=== PATIENT | female | born 1955 | race Caucasian/White ===

== ENCOUNTER 2016-12-19 07:41 | Outpatient (CLI) | payer OTHER | END 2016-12-19 07:42 | disposition home or self-care (01) | DX: R53.83 Other fatigue (principal) ==

== ENCOUNTER 2017-01-09 07:36 | Outpatient (CLI) | payer OTHER | END 2017-01-09 07:37 | disposition home or self-care (01) | DX: R53.83 Other fatigue (principal) ==

== ENCOUNTER 2018-05-06 08:19 | Outpatient (CLI) | payer OTHER ==
[2018-05-06 13:09] LABS: BASOPHILS % (AUTO) 0.6 %; EOSINOPHILS # (AUTO) 0.1 10^3/uL (0.0-0.7); EOSINOPHILS % (AUTO) 1.8 %; HGB - HEMOGLOBIN 13.1 g/dL (12.0-16.0); LYMPHOCYTES # (AUTO) 1.1 10^3/uL (1.5-3.5); LYMPHOCYTES % (AUTO) 23.3 %; MEAN CORPUSCULAR HEMOGLOBIN 31.1 pg (27.0-31.0); MEAN CORPUSCULAR HGB CONC 33.6 g/dL (32.0-36.0); MEAN CORPUSCULAR VOLUME 92.6 fL (81.0-99.0); MEAN PLATELET VOLUME 10.3 fL (7.9-10.8); MONOCYTES # (AUTO) 0.4 10^3/uL (0.0-1.0); MONOCYTES % (AUTO) 7.7 %; NEUTROPHILS # (AUTO) 3.2 10^3/uL (1.5-6.6); NEUTROPHILS % (AUTO) 66.6 %; PLT - PLATELET COUNT 187 10^3/uL (130-450); RED BLOOD COUNT 4.21 10^6/uL (4.20-5.40); RED CELL DISTRIBUTION WIDTH 13.8 % (12.0-15.0); WHITE BLOOD COUNT 4.8 x10^3/uL (4.8-10.8)
[2018-05-06 13:35] LABS: ALBUMIN 3.9 g/dL (3.2-5.5); ALBUMIN/GLOBULIN RATIO 1.8 (1.0-2.2); ALKALINE PHOSPHATASE 60 IU/L (42-121); ALT ALANINE AMINOTRANSFERASE 48 IU/L (10-60); AST ASPARTATE AMINOTRANSFERASE 36 IU/L (10-42); BILIRUBIN,TOTAL 1.1 mg/dL (0.2-1.0); BUN - BLOOD UREA NITROGEN 16 mg/dL (6-20); CARBON DIOXIDE - CO2 30 mmol/L (21-32); CHLORIDE 104 mmol/L (101-111); CHOL/HDL RATIO 2.6 (<4.4); CHOLESTEROL 201 mg/dL; CREATININE 0.6 mg/dL (0.4-1.0); GFR - MDRD 101 (>89); GLUCOSE 83 mg/dL (70-100); HDL CHOLESTEROL 78 mg/dL; LDL CHOLESTEROL,CALCULATED 114 mg/dL; LDL/HDL RATIO 1.5 (<4.4); SODIUM 139 mmol/L (135-145); TOTAL PROTEIN 6.1 g/dL (6.7-8.2); VLDL CHOLESTEROL 9 mg/dL
[2018-05-06 13:40] LABS: THYROID STIMULATING HORMONE 3.48 uIU/mL (0.34-5.60)
[2018-05-06 13:45] LABS: FERRITIN 35.6 ng/mL (11.0-306.8); HB2 TOTAL 13.4 g/dL; HEMOGLOBIN A1C 0.48 g/dL; HEMOGLOBIN A1C % 5.4 % (4.6-6.2)
== END 2018-05-06 08:20 | disposition home or self-care (01) ==
LOC: LAB.F 08:19
PROVIDERS: ATTEND Naturopath
DX: R53.83 Other fatigue (principal)
CPT/HCPCS: 36415; 80053; 80061; 82728; 83036; 83721; 84443; 85025

== ENCOUNTER 2020-03-04 14:03 | Outpatient (CLI) | payer MEDICARE, BC ==
[2020-03-04 14:47] LABS: ALBUMIN 4.3 g/dL (3.2-5.5); ALBUMIN/GLOBULIN RATIO 2.3 (1.0-2.2); CALCIUM 9.3 mg/dL (8.5-10.3); CREATININE 0.8 mg/dL (0.4-1.0); TOTAL PROTEIN 6.2 g/dL (6.7-8.2)
== END 2020-03-04 14:04 | disposition home or self-care (01) ==
LOC: LAB 14:03
PROVIDERS: ATTEND Nurse Practitioner Family
DX: D84.9 Immunodeficiency, unspecified (principal); R94.5 Abnormal results of liver function studies; E87.8 Other disorders of electrolyte and fluid balance, not elsewhere classified; D80.2 Selective deficiency of immunoglobulin A [IgA]
CPT/HCPCS: 36415; 80053; 82784

== ENCOUNTER 2020-09-21 17:16 | Outpatient (CLI) | payer MEDICARE, BC | END 2020-09-21 17:17 | disposition home or self-care (01) | LOC: COV 17:16 | PROVIDERS: ATTEND Family Medicine | DX: R06.02 Shortness of breath (principal); M79.10 Myalgia, unspecified site; R53.83 Other fatigue; R09.81 Nasal congestion; Z20.828 Contact with and (suspected) exposure to other viral communicable diseases ==

== ENCOUNTER 2020-12-20 08:26 | Outpatient (CLI) | payer MEDICARE, BC | END 2020-12-20 08:27 | disposition home or self-care (01) | LOC: LAB 08:26 | PROVIDERS: ATTEND Family Medicine | DX: I10 Essential (primary) hypertension (principal); F41.9 Anxiety disorder, unspecified; E63.9 Nutritional deficiency, unspecified; G47.9 Sleep disorder, unspecified; E61.9 Deficiency of nutrient element, unspecified; R53.83 Other fatigue; E78.5 Hyperlipidemia, unspecified; E78.00 Pure hypercholesterolemia, unspecified | CPT/HCPCS: 36415 ==

== ENCOUNTER 2021-06-02 08:12 | Outpatient (CLI) | payer MEDICARE, BC | END 2021-06-02 08:13 | disposition home or self-care (01) | LOC: LAB.S 08:12 | PROVIDERS: ATTEND Internal Medicine Cardiovascular Disease | DX: T50.905A Adverse effect of unspecified drugs, medicaments and biological substances, initial encounter (principal); I10 Essential (primary) hypertension | CPT/HCPCS: 36415; 82088; 84244 ==

== ENCOUNTER 2021-06-08 16:19 | Outpatient (CLI) | payer MEDICARE, BC | END 2021-06-08 16:20 | disposition home or self-care (01) | LOC: COV 16:19 | PROVIDERS: ATTEND Family Medicine | DX: R53.83 Other fatigue (principal); R07.0 Pain in throat; J34.89 Other specified disorders of nose and nasal sinuses; Z20.822 Contact with and (suspected) exposure to COVID-19 ==

== ENCOUNTER 2021-09-16 08:00 | Outpatient (CLI) | payer MEDICARE, BC ==
--- NOTE | 2021-09-16 10:20 | XRAY Report ---
PROCEDURE: Abdomen Acute INDICATIONS: ABDOMINAL PAIN TECHNIQUE: One view chest and two views of the abdomen were acquired. COMPARISON: None FINDINGS: Surgical changes and devices: None. Chest: Lungs are clear. Heart size is normal. No pleural effusions. No pneumoperitoneum. Abdomen: Bowel gas pattern is normal. There is a moderate amount of stool seen within the colon. No suspicious calcifications. Visualized solid organ contours appear normal. Bones: No suspicious bony lesions. IMPRESSION: There is a moderate amount of stool seen within the colon. Please correlate with clinica l constipation. Clear lungs. Reviewed by: Efraín Jean MD on 09/16/2021 9:19 AM [facility] Approved by: Efraín Jean MD on 09/16/2021 9:19 AM [facility] Station ID: [id number]
== END 2021-09-16 23:59 | disposition home or self-care (01) ==
LOC: DI.S 08:00
PROVIDERS: ATTEND Emergency Medicine
DX: R10.84 Generalized abdominal pain (principal)

== ENCOUNTER 2023-01-18 08:24 | Outpatient (CLI) | payer MEDICARE ==
--- NOTE | 2023-01-18 16:56 | XRAY Report ---
PROCEDURE: Knee 3 View LT INDICATIONS: KNEE PAIN,LEFT TECHNIQUE: 3 views of the left knee(s) were acquired. COMPARISON: None. FINDINGS: Bones: No fractures or dislocations. No patella subluxation. Mild to moderate tricompartmental oste oarthritis is seen most notably in medial femoral tibial compartment. No suspicious bony lesions. Soft tissues: No effusion. No suspicious soft tissue calcifications or masses. IMPRESSION: Mild to moderate tricompartmental osteoarthritis most notably in medial femoral tibial compartment. N o acute fracture or dislocation. No significant joint effusion. Reviewed by: Tee Potter MD on 01/18/2023 4:55 PM PDT Approved by: Tee Potter MD on 01/18/2023 4:55 PM PDT Station ID: [id number]
== END 2023-01-18 08:25 | disposition home or self-care (01) ==
LOC: DI.S 08:24
PROVIDERS: ATTEND Physician Assistant
DX: M17.12 Unilateral primary osteoarthritis, left knee (principal)

== ENCOUNTER 2023-10-10 16:36 | Outpatient (CLI) | payer MEDICARE ==
--- NOTE | 2023-10-11 12:23 | XRAY Report ---
PROCEDURE: Shoulder 3 View LT INDICATIONS: XRAY TECHNIQUE: 3 views of the shoulder were acquired. COMPARISON: None. FINDINGS: Bones: No fractures or dislocations. Mild to moderate acromioclavicular joint osteoarthritic change s are seen. No suspicious bony lesions. Visualized ribs appear intact. Soft tissues: No suspicious soft tissue calcifications. The visualized lungs are within normal limi ts. IMPRESSION: Mild to moderate acromioclavicular joint osseous arthritis. No shoulder fracture or dislocation. No g ross soft tissue abnormalities. Reviewed by: Tee Potter MD on 10/11/2023 12:22 PM PST Approved by: Tee Potter MD on 10/11/2023 12:22 PM PST Station ID: [id number]
--- NOTE | 2023-10-11 12:25 | XRAY Report ---
PROCEDURE: Cervical Spine Comp w/Flex/Ext INDICATIONS: XRAY TECHNIQUE: 7 views of the cervical spine were acquired. COMPARISON: None. FINDINGS: Bones: No fractures or dislocations to the C7-T1 level. Straightening of normal cervical lordosis is seen. Degenerative endplate changes and bilateral facet hypertrophic changes are noted throughout ce rvical spine more notably at C5-6 and C6-7 levels. No suspicious bony lesions. There is decreased ra nge of motion between flexion and extension, with preserved cervical spine alignment. Oblique views shows mild left-sided bony foraminal stenosis at C5-6 level. Soft tissues: Prevertebral soft tissues are normal in thickness. IMPRESSION: 1. Mild degenerative disc disease throughout cervical spine. No acute fracture or dislocation. 2. Slightly decreased range of motion on lateral flexion and extension views with preserved cervical spine alignment. 3. Mild left-sided bony foraminal stenosis at C5-6 level is seen on oblique views. Reviewed by: Tee Potter MD on 10/11/2023 12:23 PM PST Approved by: Tee Potter MD on 10/11/2023 12:23 PM PST Station ID: [id number]
== END 2023-10-10 16:37 | disposition home or self-care (01) ==
LOC: DI.S 16:36
PROVIDERS: ATTEND Internal Medicine
DX: M50.322 Other cervical disc degeneration at C5-C6 level (principal); M48.02 Spinal stenosis, cervical region; M19.012 Primary osteoarthritis, left shoulder

== ENCOUNTER 2023-12-27 12:30 | Outpatient (CLI) | payer MEDICARE ==
--- NOTE | 2023-12-27 16:12 | Ultrasound Report ---
PROCEDURE: Duplex Ext Veins Left INDICATIONS: PHLEBITIS AND THROMBOPHLEBITIS TECHNIQUE: Real-time imaging, as well as color and pulse Doppler interrogation, were performed of the lower extr emity deep veins from the inguinal ligament to the popliteal fossa. Attempted visualization of the ca lf veins was performed. COMPARISON: None. FINDINGS: The deep veins are normally compressible, and free of intraluminal thrombus. Color and pu lse Doppler demonstrate normal phasic intraluminal flow. There is normal augmentation response to di stal compression maneuver. IMPRESSION: No deep venous thrombosis of the visualized left lower extremity. Reviewed by: Bere Melchor MD on 12/27/2023 4:11 PM PST Approved by: Bere Melchor MD on 12/27/2023 4:11 PM PST Station ID: [id number]
== END 2023-12-27 12:31 | disposition home or self-care (01) ==
LOC: DI 12:30
PROVIDERS: ATTEND Internal Medicine
DX: I80.02 Phlebitis and thrombophlebitis of superficial vessels of left lower extremity (principal)

== ENCOUNTER 2024-02-07 21:57 | Outpatient (CLI) | payer MEDICARE | END 2024-02-07 21:58 | disposition critical access hospital (66) | LOC: EMS 21:57 | DX: M25.562 Pain in left knee (principal); W18.49XA Other slipping, tripping and stumbling without falling, initial encounter; X50.9XXA Other and unspecified overexertion or strenuous movements or postures, initial encounter; Y92.008 Other place in unspecified non-institutional (private) residence as the place of occurrence of the external cause | CPT/HCPCS: A0425; A0429 ==

== ENCOUNTER 2024-02-07 22:33 | Emergency (ER) | payer MEDICARE ==
[2024-02-07 22:54] VITALS: BP 192/90; O2SAT 99
--- NOTE | 2024-02-07 23:10 | ED Physician Documentation ---
History of Present Illness - Stated complaint Stated Complaint: L KNEE PX - Chief complaint Chief Complaint: Trauma Ext - History obtained from History obtained from: Patient, EMS - Additonal information Additional information: 69yF p/w L knee injury tonight after stumbling on last step going downstairs, twisting the knee and then lowering down to the floor. denies other injury. patient does have prior history of patellar misalignment on that side PD PAST MEDICAL HISTORY - Past Medical History Past Medical History: Yes Musculoskeletal: Osteopenia Other Past Medical History: Mast Cell Activation Syndrome - Past Surgical History Past Surgical History: Yes /[employer]: Endometrial ablation, Tubal ligation, Other HEENT: Tonsil/Adenoidectomy, Other - Present Medications Home Medications: Ambulatory Orders Medication Instructions Recorded Confirmed No Known Home Medications 02/07/24 02/07/24 - Allergies Allergies/Adverse Reactions: Allergies Allergy/AdvReac Type Severity Reaction Status Date / Time amlodipine Allergy Unknown Verified 02/07/24 22:51 amoxicillin Allergy Unknown Verified 02/07/24 22:50 Androgenic Anabolic Steroid Allergy Unknown Verified 02/07/24 22:49 Anesthetics - Amide Type - Allergy Unknown Verified 02/07/24 22:50 Select A clindamycin Allergy Unknown Verified 02/07/24 22:51 codeine Allergy Unknown Verified 02/07/24 22:48 epinephrine Allergy Unknown Verified 02/07/24 22:49 gluten Allergy Unknown Verified 02/07/24 22:53 hydralazine Allergy Unknown Verified 02/07/24 22:52 Iodinated Contrast Media Allergy Unknown Verified 02/07/24 22:50 metoprolol Allergy Unknown Verified 02/07/24 22:51 NSAIDS (Non-Steroidal Allergy Unknown Verified 02/07/24 22:48 Anti-Inflamma Sulfa (Sulfonamide Allergy Unknown Verified 02/07/24 22:49 Antibiotics) arginine Allergy Unknown Uncoded 02/07/24 22:53 coenzyme- Q-10 Allergy Unknown Uncoded 02/07/24 22:54 - Social History Does the pt smoke?: No Smoking Status: Never smoker Does the pt drink ETOH?: No Does the pt have substance abuse?: No - Immunizations Immunizations are current?: Yes - POLST Patient has POLST: No PD ED PE NORMAL - Vitals Vital signs reviewed: Yes - General General: Alert and oriented X 3, No acute distress, Well developed/nourished - HEENT HEENT: Atraumatic, PERRL, EOMI - Derm Derm: Normal color, Warm and dry - Extremities Extremities: Other (L knee tender with ROM. moderate suprapatellar edema. +anterior drawer sign. 2+ dp pulse LLE. csm intact) Results - Vitals Vitals: Vital Signs - 24 hr 02/07/24 22:32 Temperature 37.2 C Heart Rate 86 Respiratory 16 Rate Blood Pressure 192/90 H O2 Saturation 99 Oxygen O2 Source Room air PD Medical Decision Making - ED course ED course: 69yF p/w likely ligament injury s/p twisting knee on the stairs. does not appear to have other injuries. xrays without acute fracture or dislocation on wet read. knee immobilizer placed. patient has crutches at home. return precautions given. plan to f/u with ortho. Departure - Departure Disposition: 01 Home, Self Care Clinical Impression: Knee instability, Knee swelling Condition: Stable Instructions: ED RICE Follow-Up: Levi Romero MD [Provider Admit Priv/Credential] - Comments: You were seen in the emergency department for knee injury. You may have a partial ligament tear. Please follow up with orthopedics in 1 week for re-exam. Use crutches and knee immobilizer until that time. There is limited clinical data for efficacy of arnica in treatment of musculoskeletal injury. If it is effective for you then it can be used for pain relief. If you are experiencing continued pain despite this, icing, and elevating, then we are here 24 hours for re-check. Please return to the emergency department if you have any new or worsening symptoms or other concerns. Forms: PCP List
--- NOTE | 2024-02-07 23:36 | XRAY Report ---
PROCEDURE: Knee 3V LT INDICATIONS: Twisted L knee, swollen c/o pain TECHNIQUE: 3 views of the knee(s) were acquired. COMPARISON: 01/18/2023 FINDINGS: Bones: No fractures or dislocations. No suspicious bony lesions. Soft tissues: Small knee joint effusion. No suspicious soft tissue calcifications or masses. IMPRESSION: No acute bony abnormality. If pain persists with conservative management, consider repeat x-ray in 10 -14 days or cross-sectional imaging. Reviewed by: Jean Pierre Chanel MD on 02/07/2024 11:34 PM PDT Approved by: Jean Pierre Chanel MD on 02/07/2024 11:34 PM PDT Station ID: [id number]
== END 2024-02-08 00:09 | disposition home or self-care (01) ==
LOC: EDUNIT# → ED 22:33
DX: M79.89 Other specified soft tissue disorders (principal); M23.52 Chronic instability of knee, left knee; X50.1XXA Overexertion from prolonged static or awkward postures, initial encounter
CPT/HCPCS: 99283; 99284

== ENCOUNTER 2024-02-12 19:43 | Outpatient (CLI) | payer MEDICARE ==
--- NOTE | 2024-02-13 08:10 | Ultrasound Report ---
PROCEDURE: Duplex Ext Veins Left INDICATIONS: L CALF PAIN TECHNIQUE: Real-time imaging, as well as color and pulse Doppler interrogation, were performed of the lower extr emity deep veins from the inguinal ligament to the popliteal fossa. Attempted visualization of the ca lf veins was performed. COMPARISON: None. FINDINGS: The deep veins are normally compressible, and free of intraluminal thrombus. Color and pu lse Doppler demonstrate normal phasic intraluminal flow. There is normal augmentation response to di stal compression maneuver. Left popliteal fluid collection measuring 3.1 x 2.8 x 1.1 cm compatible with a Cloud's cyst. Anterior knee free fluid measuring 4.4 x 0.8 x 3.6 cm. IMPRESSION: 1.No deep venous thrombosis of the visualized lower extremity. 2.Cloud's cyst. 3.Anterior knee fluid collection measuring 4.4 x 0.8 x 3.6 cm which may represent a joint effusion ve rsus sequela of trauma. Correlate with physical exam. Reviewed by: Bere Melchor MD on 02/13/2024 8:09 AM PDT Approved by: Bere Melchor MD on 02/13/2024 8:09 AM PDT Station ID: [id number]
== END 2024-02-12 19:44 | disposition home or self-care (01) ==
LOC: DI 19:43
PROVIDERS: ATTEND Registered Nurse
DX: M71.22 Synovial cyst of popliteal space [Baker], left knee (principal)

== ENCOUNTER 2024-02-13 12:01 | Outpatient (CLI) | payer MEDICARE ==
[2024-02-13 14:13] LABS: INR 1.1 (0.8-1.2); PT - PROTHROMBIN TIME 12.3 secs (9.9-12.6)
[2024-02-13 14:15] LABS: BASOPHILS % (AUTO) 0.5 %; EOSINOPHILS # (AUTO) 0.1 10^3/uL (0.0-0.7); EOSINOPHILS % (AUTO) 1.5 %; HGB - HEMOGLOBIN 12.5 g/dL (12.0-16.0); LYMPHOCYTES # (AUTO) 1.2 10^3/uL (1.5-3.5); LYMPHOCYTES % (AUTO) 16.2 %; MEAN CORPUSCULAR HEMOGLOBIN 30.6 pg (27.0-31.0); MEAN CORPUSCULAR HGB CONC 32.1 g/dL (32.0-36.0); MEAN CORPUSCULAR VOLUME 95.4 fL (81.0-99.0); MEAN PLATELET VOLUME 11.7 fL (7.9-10.8); MONOCYTES # (AUTO) 0.6 10^3/uL (0.0-1.0); MONOCYTES % (AUTO) 7.7 %; NEUTROPHILS # (AUTO) 5.5 10^3/uL (1.5-6.6); NEUTROPHILS % (AUTO) 73.7 %; PLT - PLATELET COUNT 240 10^3/uL (130-450); RED BLOOD COUNT 4.09 10^6/uL (4.20-5.40); RED CELL DISTRIBUTION WIDTH 13.4 % (12.0-15.0); WHITE BLOOD COUNT 7.4 x10^3/uL (4.8-10.8)
[2024-02-13 14:20] LABS: PARTIAL THROMBOPLASTIN TIME 41.8 secs (24.9-33.3)
== END 2024-02-13 12:02 | disposition home or self-care (01) ==
LOC: LAB.S 12:01
PROVIDERS: ATTEND Registered Nurse
DX: R22.42 Localized swelling, mass and lump, left lower limb (principal); M79.662 Pain in left lower leg; I80.02 Phlebitis and thrombophlebitis of superficial vessels of left lower extremity
CPT/HCPCS: 36415; 85025; 85379; 85610; 85730

== ENCOUNTER 2024-02-17 10:15 | Outpatient (CLI) | payer MEDICARE ==
[2024-02-17 15:39] LABS: PARTIAL THROMBOPLASTIN TIME 39.7 secs (24.9-33.3)
[2024-02-19 18:08] LABS: CARDIOLIPIN IGG <9 GPL U/mL (0-14); CARDIOLIPIN IGM <9 MPL U/mL (0-12)
== END 2024-02-17 10:16 | disposition home or self-care (01) ==
LOC: LAB.S 10:15
PROVIDERS: ATTEND Internal Medicine
DX: M25.562 Pain in left knee (principal); D68.9 Coagulation defect, unspecified; D69.9 Hemorrhagic condition, unspecified; I80.02 Phlebitis and thrombophlebitis of superficial vessels of left lower extremity; D89.42 Idiopathic mast cell activation syndrome; S80.02XD Contusion of left knee, subsequent encounter
CPT/HCPCS: 36415; 81599; 85240; 85245; 85246; 85300; 85303; 85307; 85379; 85598; 85610; 85613; 85730; 85732; 86147; 86225

== ENCOUNTER 2024-02-24 12:18 | Outpatient (CLI) | payer MEDICARE ==
[2024-02-24 14:43] LABS: BASOPHILS % (AUTO) 0.5 %; EOSINOPHILS # (AUTO) 0.1 10^3/uL (0.0-0.7); EOSINOPHILS % (AUTO) 0.7 %; HCT - HEMATOCRIT 39.3 % (37.0-47.0); HGB - HEMOGLOBIN 12.5 g/dL (12.0-16.0); LYMPHOCYTES # (AUTO) 1.1 10^3/uL (1.5-3.5); LYMPHOCYTES % (AUTO) 13.1 %; MEAN CORPUSCULAR HEMOGLOBIN 30.5 pg (27.0-31.0); MEAN CORPUSCULAR HGB CONC 31.8 g/dL (32.0-36.0); MEAN CORPUSCULAR VOLUME 95.9 fL (81.0-99.0); MEAN PLATELET VOLUME 11.6 fL (7.9-10.8); MONOCYTES # (AUTO) 0.5 10^3/uL (0.0-1.0); MONOCYTES % (AUTO) 6.5 %; NEUTROPHILS # (AUTO) 6.6 10^3/uL (1.5-6.6); NEUTROPHILS % (AUTO) 78.8 %; PLT - PLATELET COUNT 305 10^3/uL (130-450); RED CELL DISTRIBUTION WIDTH 13.6 % (12.0-15.0); WHITE BLOOD COUNT 8.3 x10^3/uL (4.8-10.8)
[2024-02-24 15:24] LABS: PARTIAL THROMBOPLASTIN TIME 37.7 secs (24.9-33.3)
[2024-02-24 16:57] LABS: INR 1.1 (0.8-1.2); PT - PROTHROMBIN TIME 12.2 secs (9.9-12.6)
== END 2024-02-24 12:19 | disposition home or self-care (01) ==
LOC: LAB.S 12:18
PROVIDERS: ATTEND Nurse Practitioner
DX: R79.9 Abnormal finding of blood chemistry, unspecified (principal)
CPT/HCPCS: 36415; 85025; 85379; 85610; 85730

== ENCOUNTER 2024-02-24 15:56 | Outpatient (CLI) | payer MEDICARE ==
--- NOTE | 2024-02-25 09:41 | MRI Report ---
PROCEDURE: Foot LT WO INDICATIONS: L KNEE PAIN,PHLEBITIS AND THOMBOPHLB TECHNIQUE: Noncontrast sagittal T1 spin echo and T2 fast spin echo with fat saturation, long-axis T1 spin echo a nd T2 fast spin echo with fat saturation, short-axis proton density fast spin echo and T2 fast spin e cho with fat saturation through the forefoot. COMPARISON: Left lower extremity venous Doppler study dated 02/12/2024 FINDINGS: Image quality: Excellent. Bones and joints: No bone marrow contusions or metatarsal stress fractures. Mild midfoot and forefoo t joint osteoarthritic changes are seen with joint space narrowing and subchondral sclerosis more not ably in first MTP joint and first interphalangeal joint. No suspicious bony lesions. No bony erosive changes or abnormal periosteal reaction. Soft tissues: There is significant soft tissue edema and swelling over dorsum of midfoot and forefoo t. No discrete drainable fluid collection. The visualized plantar foot muscles demonstrate normal sig nal and bulk. Visualized flexor and extensor tendons appear intact, without tenosynovitis. No soft tissue ganglion cysts or bursal fluid collections. Sagittal images demonstrate no evidence for plant ar plate tears. IMPRESSION: 1. Dorsal midfoot and forefoot soft tissue swelling and edema suggestive of mild cellulitis. No discr ete drainable abscess collection. 2. No marrow edema. No fracture or dislocation. No MR evidence of osteomyelitis. Midfoot and forefoot joint osteoarthritis most notably in great toe as above. No metatarsal stress fractures. 3. No signal abnormalities are seen in included portion of plantar foot muscles. Extensor and flexor tendons are intact. Reviewed by: Tee Potter MD on 02/25/2024 9:39 AM PDT Approved by: Tee Potter MD on 02/25/2024 9:39 AM PDT Station ID: [id number]
--- NOTE | 2024-02-25 09:47 | MRI Report ---
Knee LT WO CLINICAL INFORMATION: 69 years of age, Female, L KNEE PAIN,PHLEBITIS AND THOMBOPHLB. COMPARISON: Radiograph on 02/07/2024 Technique: Multisequence, multiplanar MRI of the left knee was performed without intravenous contrast . FINDINGS: Menisci: The medial and lateral menisci, including the roots, are intact. Cruciate ligaments: The anterior and posterior cruciate ligaments are intact. MCL/LCL: The MCL is unremarkable. The biceps femoris tendon is unremarkable. The fibular collateral ligament is unremarkable. The iliotibial band is intact. The popliteus muscle and tendon also appear intact. Extensor mechanism: Small amount of fluid within the quadricep tendon, suggestive of low-grade tear. The patella tendon is unremarkable. Patellofemoral joint: Alignment within the patellofemoral joint is normal. The patellofemoral ligame nts are intact. Cartilage and bone marrow signal within the patella and femoral trochlea are normal. Cartilage and bone: In the medial compartment, the cartilage is well-maintained. There is a small sub chondral insufficiency fracture in the weightbearing portion of the femoral condyle with minimal surr ounding marrow edema. There is a nondisplaced fracture of both the medial and lateral tibial plateau with marked surrounding marrow edema. In addition, there is a nondisplaced fracture of the fibular he ad with marked marrow edema. In the lateral compartment, the cartilage is grossly well maintained as well. Miscellaneous: Moderate knee effusion. No popliteal cyst. No intra-articular bodies are identified. Diffuse, mild muscle edema about the knee. Diffuse subcutaneous edema of the knee. No vascular anomal y. IMPRESSION: 1.Small subchondral insufficiency fracture in the medial femoral condyle. 2.Nondisplaced fracture of the medial and lateral tibial plateau, and of the fibular head, acute. 3.Moderate knee effusion. Reviewed by: Kerry Ramirez MD on 02/25/2024 9:46 AM PDT Approved by: Kerry Ramirez MD on 02/25/2024 9:46 AM PDT Station ID: [id number]
== END 2024-02-24 15:57 | disposition home or self-care (01) ==
LOC: DI 15:56
PROVIDERS: ATTEND Registered Nurse
DX: S82.145A Nondisplaced bicondylar fracture of left tibia, initial encounter for closed fracture (principal); S82.832A Other fracture of upper and lower end of left fibula, initial encounter for closed fracture; M25.462 Effusion, left knee; M19.072 Primary osteoarthritis, left ankle and foot; R79.9 Abnormal finding of blood chemistry, unspecified
CPT/HCPCS: 36415; 85025; 85379; 85610; 85730

== ENCOUNTER 2024-03-27 14:00 | Outpatient (CLI) | payer MEDICARE ==
--- NOTE | 2024-03-27 16:05 | MRI Report ---
Ankle LT WO CLINICAL HISTORY: 69 years of age, Female, L LEG SWELLING. COMPARISON: None Technique: Multisequence, multiplanar MRI of the left ankle was performed without contrast. IV CONTRAST: Not given FINDINGS: Tendons: The flexors, and extensor tendons are unremarkable. The peroneal tendons and the distal Achi lles tendon are unremarkable. Ligaments: The anterior and posterior tibiofibular ligaments are intact. The anterior and posterior t alofibular ligaments are intact. The calcaneofibular ligament is unremarkable. The superficial and de ep components of the deltoid ligament are intact. Sinus Tarsi: Normal signal without evidence of inflammatory change or fibrosis. Plantar fascia: Normal signal and morphology without evidence of inflammation or tear. Muscles: Visualized intrinsic foot musculature demonstrates normal signal and bulk. Bones and cartilage: Patchy marrow edema within the ankle, nonspecific and may be secondary to altere d weightbearing. No osteochondral lesion of the talus dome. Miscellaneous: Tarsal tunnel appears normal. No significant effusion. No ganglion cyst. Diffuse sub cutaneous edema of the ankle, extending to the dorsal foot. IMPRESSION: 1.Patchy marrow edema within the ankle, nonspecific and may be secondary to altered weightbearing. 2.Diffuse subcutaneous edema of the ankle, extending to the dorsal forefoot. Reviewed by: Kerry Ramirez MD on 03/27/2024 4:04 PM PDT Approved by: Kerry Ramirez MD on 03/27/2024 4:04 PM PDT Station ID: [id number]
== END 2024-03-27 14:01 | disposition home or self-care (01) ==
LOC: DI 14:00
PROVIDERS: ATTEND Internal Medicine
DX: R22.42 Localized swelling, mass and lump, left lower limb (principal); R79.1 Abnormal coagulation profile; D69.9 Hemorrhagic condition, unspecified

== ENCOUNTER 2024-04-27 14:42 | Outpatient (CLI) | payer MEDICARE ==
--- NOTE | 2024-04-27 16:32 | XRAY Report ---
PROCEDURE: Ankle 3+V LT INDICATIONS: LEFT ANKLE PAIN TECHNIQUE: 3 views of the ankle were acquired. COMPARISON: MRI ankle 03/27/2024. FINDINGS: Bones: No fractures or dislocations. Ankle mortise is normally aligned. No suspicious bony lesions . Overall appearance of mild decreased bone mineral density. Soft tissues: No tibiotalar joint effusion. Achilles tendon appears normal. IMPRESSION: No visualized acute fracture or dislocation. However, occult injury cannot be excluded. Recommend gavino rt interval imaging follow-up in 7-10 days as clinically indicated for additional evaluation. Reviewed by: Renea Fontana MD on 04/27/2024 4:31 PM PDT Approved by: Renea Fontana MD on 04/27/2024 4:31 PM PDT Station ID: [id number]
== END 2024-04-27 14:43 | disposition home or self-care (01) ==
LOC: DI 14:42
PROVIDERS: ATTEND Podiatrist
DX: M25.572 Pain in left ankle and joints of left foot (principal)